=== PATIENT | female | born 1985 | race Caucasian/White ===

== ENCOUNTER → 2016-06-06 | Outpatient (CLI) | payer OTHER ==
--- NOTE | 2016-06-06 15:52 | REP ---
MAXILLOFACIAL CT WITHOUT CONTRAST: HISTORY: Recurrent sinusitis. Small bilateral Anjelica cells are present. The right frontal sinus is hypoplastic. The sinuses are clear. The ostiomeatal units are patent. The middle and inferior nasal turbinates are partially paradoxical. There is very minimal deviation of the nasal septum to the right. The cribriform plate, medial olivas of the orbits and optic canals are intact. There is aeration of the left anterior clinoid process. The carotid canals form a segment of the posterolateral olivas of the sphenoid sinus. IMPRESSION: There is no acute or chronic sinusitis. Signed by West Hurtado MD 06/06/2016 03:54 P
== END ==
LOC: M RAD 14:55
PROVIDERS: ATTEND Family Medicine
DX: J01.11 Acute recurrent frontal sinusitis (principal)

== ENCOUNTER → 2016-11-25 | Outpatient (REF) | payer MEDICAID, OTHER ==
[2016-11-25 12:56] LABS: FOLATE 17.9 NG/ML (>5.4); VITAMIN B12 LEVEL 1111 PG/ML (247-911)
[2016-11-25 13:06] LABS: ALBUMIN 3.7 GM/DL (3.2-5.2); ALBUMIN/GLOBULIN RATIO 1.09 (1.00-1.93); ALKALINE PHOSPHATASE 93 U/L (45-117); ALT/SGPT 28 U/L (12-78); ANION GAP 9 MEQ/L (8-16); AST/SGOT 18 U/L (15-37); BILIRUBIN,TOTAL 0.3 MG/DL (0.2-1.0); BLOOD UREA NITROGEN 11 MG/DL (7-18); CALCIUM LEVEL 9.3 MG/DL (8.5-10.1); CARBON DIOXIDE LEVEL 27 MEQ/L (21-32); CHLORIDE LEVEL 106 MEQ/L (98-107); CHOLESTEROL LEVEL 186 MG/DL (<200); CREATININE FOR GFR 0.91 MG/DL (0.55-1.02); GLOMERULAR FILTRATION RATE > 60.0 (>60); GLUCOSE, FASTING 76 MG/DL (70-105); MAGNESIUM LEVEL 2.5 MG/DL (1.8-2.4); POTASSIUM SERUM 4.6 MEQ/L (3.5-5.1); SODIUM LEVEL 142 MEQ/L (136-145); TOTAL PROTEIN 7.1 GM/DL (6.4-8.2); TRIGLYCERIDES LEVEL 133 MG/DL (<150)
[2016-11-25 13:29] LABS: BASO % 0.3 % (0.0-1.0); EOS # 0.2 K/mm3 (0.0-0.50); LARGE UNSTAINED CELL # 0.1 K/mm3 (0.0-0.4); LARGE UNSTAINED CELL % 1.2 % (0.0-4.0); LYMPH # 1.6 K/mm3 (1.5-4.5); LYMPH % 19.8 % (24.0-44.0); MEAN CORPUSCULAR HEMOGLOBIN 29.7 pg (27.0-33.0); MEAN CORPUSCULAR VOLUME 92.9 fl (80.0-96.0); MONO # 0.5 K/mm3 (0.0-0.8); MONO % 6.5 % (0.0-5.0); NEUTROPHILS # 5.3 K/mm3 (1.8-7.7); NEUTROPHILS % 70.2 % (36.0-66.0); PLATELET COUNT, AUTOMATED 238 k/mm3 (150-450); WHITE BLOOD COUNT 7.5 K/mm3 (4.0-10.0)
== END ==
LOC: M SFHCCLAY 08:05
PROVIDERS: ATTEND Family Medicine
DX: Z98.890 Other specified postprocedural states (principal)

== ENCOUNTER → 2017-01-03 | Outpatient (REF) | payer OTHER | LOC: M LAB REF 16:50 | PROVIDERS: ATTEND Physician Assistant Medical | DX: J02.9 Acute pharyngitis, unspecified (principal) ==

== ENCOUNTER → 2017-02-08 | Outpatient (CLI) | payer OTHER ==
--- NOTE | 2017-02-08 14:53 | REP ---
Left foot radiographs: Four views. History: Pain. Three weeks after a fall. Findings: Four views of the left foot show overall normal mineralization. No fracture is seen. No subluxation noted. Plantar and Achilles calcaneal spurring are noted. Impression: Heel spurs. No traumatic abnormality seen. Signed by Hammad Cabrera MD 02/08/2017 03:09 P
== END ==
LOC: M ADAMS 14:23
PROVIDERS: ATTEND Physician Assistant
DX: M79.672 Pain in left foot (principal); M77.32 Calcaneal spur, left foot

== ENCOUNTER 2017-04-28 22:22 | Emergency (ER) | payer OTHER ==
[2017-04-28] MEDS: ONDANSETRON 4 MG ORAL DISINTEGRATING TAB (S0181) PO (23:45)
[2017-04-28] MEDS: traMADol 50 MG TAB PO (23:50)
== END 2017-04-29 01:23 | disposition home or self-care (01) ==
LOC: M ED 04-29 01:23
DX: S30.0XXA Contusion of lower back and pelvis, initial encounter (principal); S20.221A Contusion of right back wall of thorax, initial encounter; W10.9XXA Fall (on) (from) unspecified stairs and steps, initial encounter; Y92.009 Unspecified place in unspecified non-institutional (private) residence as the place of occurrence of the external cause; Y93.89 Activity, other specified; Y99.8 Other external cause status; F17.210 Nicotine dependence, cigarettes, uncomplicated; F41.9 Anxiety disorder, unspecified; F33.9 Major depressive disorder, recurrent, unspecified; Z79.899 Other long term (current) drug therapy; Z88.5 Allergy status to narcotic agent; Z88.8 Allergy status to other drugs, medicaments and biological substances; Z91.048 Other nonmedicinal substance allergy status
CPT/HCPCS: 71101

== ENCOUNTER → 2017-05-04 | Outpatient (CLI) | payer OTHER | LOC: M ADAMS 11:45 | DX: M54.14 Radiculopathy, thoracic region (principal) | CPT/HCPCS: 72072 ==

== ENCOUNTER → 2018-05-13 | Outpatient (CLI) | payer MEDICAID ==
[~2018-05-13] MED LIST: ADDE12.5 PO; BUPR75TA5 PO; BUSP1TAB PO; ULTR50TA8 PO; VERA40TA PO
--- NOTE | 2018-05-13 09:33 | REP ---
RIGHT KNEE, FIVE VIEWS: HISTORY: Acute pain. There is no acute fracture or dislocation. The joint spaces are normal in appearance. IMPRESSION: There is no acute fracture or dislocation.
== END ==
LOC: M CLY 08:46
PROVIDERS: ATTEND Family Medicine
DX: M25.561 Pain in right knee (principal)

== ENCOUNTER → 2018-06-03 | Outpatient (CLI) | payer OTHER ==
--- NOTE | 2018-06-04 02:56 | REP ---
Clinical: Left-sided pain . Technique: Villeda scale and color Doppler evaluation using linear high frequency transducer. Findings: Ultrasound examination of the left lower extremity deep venous structures from the common femoral vein to the popliteal vein demonstrates normal compressibility flow and wave patterns in response to respiration and augmentation. There is no evidence for deep venous thrombosis. Impression: No evidence for deep venous thrombosis. Electronically Signed by Javier Ruiz MD 06/04/2018 02:47 A
== END ==
LOC: M RAD 08:17
PROVIDERS: ATTEND Nurse Practitioner Family
DX: M79.605 Pain in left leg (principal)

== ENCOUNTER → 2019-02-01 | Outpatient (REF) | payer OTHER ==
[2019-02-01 11:35] LABS: BASO % 0.3 % (0.0-1.0); EOS # 0.1 10^3/uL (0.0-0.5); EOS % 1.5 % (0.0-3.0); HEMATOCRIT 41.7 % (36.0-47.0); HEMOGLOBIN 12.8 g/dl (12.0-15.5); LYMPH # 2.5 10^3/uL (1.5-5.0); LYMPH % 28.5 % (24.0-44.0); MEAN CORPUSCULAR HGB CONC 30.7 g/dl (32.0-36.5); MEAN CORPUSCULAR VOLUME 91.2 fl (80.0-96.0); MONO # 0.6 10^3/uL (0.0-0.8); MONO % 7.4 % (0.0-5.0); NEUTROPHILS # 5.3 10^3/uL (1.5-8.5); PLATELET COUNT, AUTOMATED 309 10^3/uL (150-450); RED BLOOD COUNT 4.57 10^6/uL (4.00-5.40); WHITE BLOOD COUNT 8.6 10^3/uL (4.0-10.0)
[2019-02-01 11:50] LABS: ALBUMIN 3.6 GM/DL (3.2-5.2); ALT/SGPT 25 U/L (12-78); BILIRUBIN,TOTAL 0.3 MG/DL (0.2-1.0); BLOOD UREA NITROGEN 11 MG/DL (7-18); CALCIUM LEVEL 9.2 MG/DL (8.5-10.1); CARBON DIOXIDE LEVEL 28 MEQ/L (21-32); CHLORIDE LEVEL 107 MEQ/L (98-107); CHOLESTEROL LEVEL 183 MG/DL (<200); CREATININE FOR GFR 0.96 MG/DL (0.55-1.30); FOLATE > 24.0 NG/ML (>5.4); GLOMERULAR FILTRATION RATE > 60.0 (>60); GLUCOSE, FASTING 88 MG/DL (70-100); HDL CHOLESTEROL 75 MG/DL (>40); IRON (FE) 50 UG/DL (50-170); LDL CHOLESTEROL 79 MG/DL (<100); MAGNESIUM LEVEL 2.1 MG/DL (1.8-2.4); NON-HDL-C 108 MG/DL; POTASSIUM SERUM 4.4 MEQ/L (3.5-5.1); SODIUM LEVEL 143 MEQ/L (136-145); TOTAL PROTEIN 6.6 GM/DL (6.4-8.2); TRIGLYCERIDES LEVEL 143 MG/DL (<150); VITAMIN B12 LEVEL 1106 PG/ML (247-911)
== END ==
LOC: M SFHCCLAY 07:39
PROVIDERS: ATTEND Family Medicine
DX: Z98.890 Other specified postprocedural states (principal); E16.2 Hypoglycemia, unspecified; Z79.899 Other long term (current) drug therapy

== ENCOUNTER 2019-12-15 07:57 | Emergency (ER) | payer OTHER ==
[~2019-12-15] VITALS: Ht 167.6 cm; Wt 110.4 kg
[2019-12-15] MEDS ORDERED: TRAZ-252 (08:10)
[2019-12-15] MEDS ORDERED: BUSP15TA47 (08:10)
[2019-12-15] MEDS ORDERED: TIZA2TA (08:10)
[2019-12-15] MEDS ORDERED: TRAM50TA2 (08:10)
[2019-12-15] MEDS ORDERED: DULO1CAP6 (08:10)
[2019-12-15] MEDS ORDERED: traMADol 50 MG TAB PO ONE (08:30)
[2019-12-15 09:23] LABS: BASO % 0.3 % (0.0-1.0); EOS # 0.3 10^3/uL (0.0-0.5); EOS % 2.7 % (0.0-3.0); HEMATOCRIT 41.3 % (36.0-47.0); HEMOGLOBIN 13.1 g/dl (12.0-15.5); LYMPH # 2.6 10^3/uL (1.5-5.0); LYMPH % 26.4 % (24.0-44.0); MEAN CORPUSCULAR HEMOGLOBIN 28.1 pg (27.0-33.0); MEAN CORPUSCULAR HGB CONC 31.7 g/dl (32.0-36.5); MEAN CORPUSCULAR VOLUME 88.4 fl (80.0-96.0); MONO # 0.9 10^3/uL (0.0-0.8); MONO % 8.8 % (0.0-5.0); NEUTROPHILS % 61.5 % (36.0-66.0); RED BLOOD COUNT 4.67 10^6/uL (4.00-5.40); WHITE BLOOD COUNT 9.8 10^3/uL (4.0-10.0)
[2019-12-15 09:39] LABS: C REACTIVE PROTEIN QUANTITATIV 0.91 MG/DL (0.00-0.30); CK-MB VALUE MASS < 1.0 NG/ML (<3.6); CPK CREATINE PHOSPHOKINASE 86 U/L (26-192); ETHYL ALCOHOL (ETHANOL) < 0.003 % (0.000-0.010); MB/CK RELATIVE INDEX 1.16 (< OR =4); TROPONIN I < 0.02 NG/ML (< 0.10)
[2019-12-15 09:54] LABS: PLATELET COUNT, AUTOMATED 276 10^3/uL (150-450)
[2019-12-15 11:29] LABS: ERYTHROCYTE SEDIMENTATION RATE 17 mm/hr (0-20)
[2019-12-15] MEDS ORDERED: PROHANCE 279.3MG/ML 5ML VIAL As Ordered ONE (14:05)
[2019-12-15] MEDS ORDERED: PROHANCE 279.3MG/ML 15ML VIAL As Ordered ONE (14:06)
--- NOTE | 2019-12-15 15:13 | REPVR ---
PROCEDURE INFORMATION: Exam: MR Right Lower Extremity Joint Without and With Contrast; Hip Exam date and time: 12/15/2019 2:32 PM Age: 34 years old Clinical indication: Abnormal findings; Abnormal imaging study; Xray; Additional info: Concern for lytic lesion on imaging, ortho to get mri today TECHNIQUE: Imaging protocol: MR of the Right lower extremity joint without and with contrast. Exam focused on the hip. Contrast material: PROHANCE; Contrast volume: 20 ml; Contrast route: INTRAVENOUS (IV); COMPARISON: CR Hip, Ap,Lat RIGHT 12/15/2019 10:05 AM FINDINGS: Bones and cartilage: There is no evidence of a lesion noted involving the intertrochanteric region of right hip. There is however, mild bilateral trochanteric bursitis. There is marrow edema noted involving the superior acetabular rim anteriorly. This enhances postcontrast extends 2 the cortex with a possible developing subchondral bone cyst. This may represent early arthritic changes are early area of osteonecrosis. There is no evidence of cartilage thinning. Joint spaces: There is no evidence of a labral tear however, there is a trace effusion. Labrum: Unremarkable. No tear. TENDONS: Tendons of iliopsoas group: Unremarkable. No evidence of tear. Tendons of medial compartment of thigh: Unremarkable. No evidence of tear. Tendons of lateral rotators of hip: Unremarkable. No evidence of tear. Tendons of gluteal group: Unremarkable. No evidence of tear. Muscles: There is no evidence of abnormal muscle edema. Soft tissues: Unremarkable. IMPRESSION: There is no bony lesion however, there is trochanteric bursitis bilaterally. In addition there is marrow edema noted involving the superior anterior acetabulum with contrast enhancement of this area. The presence of a early osteochondral lesion or early osteonecrosis is suspected. Electronically signed by: Angel Rubio On 12/15/2019 15:13:59 PM
[2019-12-15] MEDS ORDERED: KETOROLAC 30 MG/ML 1ML VIAL IV ONE (15:30)
[2019-12-15 16:06] VITALS: BP 115/60
== END 2019-12-15 17:01 | disposition home or self-care (01) ==
LOC: M ED 07:57
DX: D75.89 Other specified diseases of blood and blood-forming organs (principal); M70.61 Trochanteric bursitis, right hip; M70.62 Trochanteric bursitis, left hip; M25.551 Pain in right hip; F41.9 Anxiety disorder, unspecified; F32.9 Major depressive disorder, single episode, unspecified; Z98.84 Bariatric surgery status; J30.1 Allergic rhinitis due to pollen; F17.210 Nicotine dependence, cigarettes, uncomplicated; Z88.5 Allergy status to narcotic agent; Z88.6 Allergy status to analgesic agent; Z88.8 Allergy status to other drugs, medicaments and biological substances; Z79.899 Other long term (current) drug therapy
CPT/HCPCS: 36415; 73502; 73723; 80047; 82550; 82553; 85025; 85652; 86140; 96374; 99284; A9576; G0480; J1885

== ENCOUNTER → 2020-04-28 | Outpatient (CLI) | payer SELFPAY ==
[~2020-04-28] MED LIST changes: +BUSP15TA47; +DULO1CAP6; +TIZA2TA; +TRAM50TA2; +TRAZ-252
== END ==
LOC: M LABSMTC 09:29
PROVIDERS: ATTEND Pediatrics
DX: Z20.828 Contact with and (suspected) exposure to other viral communicable diseases (principal)

== ENCOUNTER → 2020-08-27 | Outpatient (REF) | payer OTHER ==
[2020-08-27 12:20] LABS: BASO % 0.3 % (0.0-1.0); EOS # 0.2 10^3/uL (0.0-0.5); EOS % 1.9 % (0.0-3.0); HEMATOCRIT 39.1 % (36.0-47.0); HEMOGLOBIN 12.3 g/dl (12.0-15.5); LYMPH # 2.2 10^3/uL (1.5-5.0); LYMPH % 22.7 % (24.0-44.0); MEAN CORPUSCULAR HEMOGLOBIN 28.2 pg (27.0-33.0); MEAN CORPUSCULAR HGB CONC 31.5 g/dl (32.0-36.5); MEAN CORPUSCULAR VOLUME 89.7 fl (80.0-96.0); MONO # 0.8 10^3/uL (0.0-0.8); MONO % 8.2 % (2.0-8.0); NEUTROPHILS # 6.3 10^3/uL (1.5-8.5); NEUTROPHILS % 66.6 % (36.0-66.0); PLATELET COUNT, AUTOMATED 368 10^3/uL (150-450); RED BLOOD COUNT 4.36 10^6/uL (4.00-5.40); WHITE BLOOD COUNT 9.5 10^3/uL (4.0-10.0)
[2020-08-27 13:18] LABS: ALBUMIN 3.6 GM/DL (3.2-5.2); ALT/SGPT 30 U/L (12-78); BILIRUBIN,TOTAL 0.4 MG/DL (0.2-1.0); BLOOD UREA NITROGEN 12 MG/DL (7-18); CARBON DIOXIDE LEVEL 27 MEQ/L (21-32); CHLORIDE LEVEL 105 MEQ/L (98-107); CREATININE FOR GFR 0.82 MG/DL (0.55-1.30); FOLATE 9.8 NG/ML (>5.4); GLOMERULAR FILTRATION RATE > 60.0 (>60); GLUCOSE, FASTING 74 MG/DL (70-100); IRON (FE) 113 UG/DL (50-170); MAGNESIUM LEVEL 2.4 MG/DL (1.8-2.4); POTASSIUM SERUM 5.3 MEQ/L (3.5-5.1); SODIUM LEVEL 138 MEQ/L (136-145); TOTAL PROTEIN 6.9 GM/DL (6.4-8.2); VITAMIN B12 LEVEL 579 PG/ML (247-911)
[2020-08-27 18:27] LABS: HEMOGLOBIN A1c 4.8 %
== END ==
LOC: M SFHCCLAY 09:10
PROVIDERS: ATTEND Family Medicine
DX: R10.9 Unspecified abdominal pain (principal); Z98.84 Bariatric surgery status

== ENCOUNTER → 2020-09-03 | Outpatient (CLI) | payer OTHER | LOC: M LAB 10:31 | PROVIDERS: ATTEND Physician Assistant | DX: R19.7 Diarrhea, unspecified (principal) ==

== ENCOUNTER → 2020-09-22 | Outpatient (CLI) | payer SELFPAY | LOC: M LABSMTC 10:16 | PROVIDERS: ATTEND Pediatrics | DX: Z11.52 Encounter for screening for COVID-19 (principal) ==

== ENCOUNTER → 2021-08-16 | Outpatient (REF) | payer OTHER ==
[2021-08-16 11:39] LABS: BASO % 0.3 % (0.0-1.0); EOS # 0.3 10^3/uL (0.0-0.5); EOS % 2.5 % (0.0-3.0); HEMATOCRIT 41.9 % (36.0-47.0); HEMOGLOBIN 13.4 g/dl (12.0-15.5); LYMPH # 2.3 10^3/uL (1.5-5.0); LYMPH % 22.9 % (24.0-44.0); MEAN CORPUSCULAR HEMOGLOBIN 28.7 pg (27.0-33.0); MEAN CORPUSCULAR VOLUME 89.7 fl (80.0-96.0); MONO # 0.9 10^3/uL (0.0-0.8); MONO % 9.3 % (2.0-8.0); NEUTROPHILS # 6.4 10^3/uL (1.5-8.5); NEUTROPHILS % 64.5 % (36.0-66.0); PLATELET COUNT, AUTOMATED 311 10^3/uL (150-450); RED BLOOD COUNT 4.67 10^6/uL (4.00-5.40)
[2021-08-16 11:52] LABS: ALBUMIN 3.7 GM/DL (3.2-5.2); ALT/SGPT 34 U/L (12-78); BILIRUBIN,TOTAL 0.5 MG/DL (0.2-1.0); BLOOD UREA NITROGEN 14 MG/DL (7-18); CALCIUM LEVEL 9.8 MG/DL (8.5-10.1); CARBON DIOXIDE LEVEL 29 MEQ/L (21-32); CHLORIDE LEVEL 107 MEQ/L (98-107); CHOLESTEROL LEVEL 217 MG/DL (<200); CHOLESTEROL RISK RATIO 2.583 (<5); CREATININE FOR GFR 0.83 MG/DL (0.55-1.30); FOLATE 9.1 NG/ML (>5.4); GLOMERULAR FILTRATION RATE > 60.0 (>60); GLUCOSE, FASTING 76 MG/DL (70-100); HDL CHOLESTEROL 84 MG/DL (>40); IRON (FE) 144 UG/DL (50-170); LDL CHOLESTEROL 105 MG/DL (<100); MAGNESIUM LEVEL 2.2 MG/DL (1.8-2.4); NON-HDL-C 133 MG/DL; POTASSIUM SERUM 4.3 MEQ/L (3.5-5.1); SODIUM LEVEL 138 MEQ/L (136-145); TOTAL PROTEIN 7.1 GM/DL (6.4-8.2); TRIGLYCERIDES LEVEL 140 MG/DL (<150)
[2021-08-20 16:59] LABS: VITAMIN B12 LEVEL 438 PG/ML (247-911)
== END ==
LOC: M SFHCCLAY 09:08
PROVIDERS: ATTEND Family Medicine
DX: R00.2 Palpitations (principal); Z98.84 Bariatric surgery status

== ENCOUNTER → 2022-02-28 | Outpatient (CLI) | payer OTHER | LOC: M RAD 15:54 | PROVIDERS: ATTEND Family Medicine | DX: M54.16 Radiculopathy, lumbar region (principal) ==

== ENCOUNTER → 2022-12-08 | Outpatient (REF) | payer OTHER ==
[2022-12-08 12:47] LABS: HEMOGLOBIN A1c 5.6 % (4.0-6.0)
[2022-12-08 13:00] LABS: HEMATOCRIT 36.8 % (36.0-47.0); HEMOGLOBIN 11.4 g/dl (12.0-15.5); MEAN CORPUSCULAR HEMOGLOBIN 24.6 pg (27.0-33.0); MEAN CORPUSCULAR VOLUME 79.5 fl (80.0-96.0); PLATELET COUNT, AUTOMATED 409 10^3/uL (150-450); RED BLOOD COUNT 4.63 10^6/uL (4.00-5.40); WHITE BLOOD COUNT 9.6 10^3/uL (4.0-10.0)
[2022-12-08 13:06] LABS: ALBUMIN 3.8 G/DL (3.2-5.2); ALKALINE PHOSPHATASE 104 U/L (46-116); ALT/SGPT 25 U/L (7.0-40); AST/SGOT 17 U/L (<34); BILIRUBIN,TOTAL 0.3 MG/DL (0.3-1.2); BLOOD UREA NITROGEN 9 MG/DL (9-23); CALCIUM LEVEL 9.8 MG/DL (8.5-10.1); CARBON DIOXIDE LEVEL 26 MMOL/L (20-31); CHLORIDE LEVEL 105 MMOL/L (98-107); CHOLESTEROL LEVEL 198 MG/DL (<200); CHOLESTEROL RISK RATIO 2.61 (<5); CREATININE FOR GFR 0.75 MG/DL (0.55-1.30); GLOMERULAR FILTRATION RATE > 60.0 (>60); GLUCOSE, FASTING 79 MG/DL (60-100); HDL CHOLESTEROL 75.8 MG/DL (>40); IRON (FE) 45 UG/DL (50-170); MAGNESIUM LEVEL 2.2 MG/DL (1.8-2.4); NON-HDL-C 122.2 MG/DL; POTASSIUM SERUM 4.8 MMOL/L (3.5-5.1); SODIUM LEVEL 139 MMOL/L (136-145); TOTAL PROTEIN 6.9 G/DL (5.7-8.2); TRIGLYCERIDES LEVEL 201 MG/DL (<150)
[2022-12-08 13:07] LABS: FOLATE 20.27 NG/ML (>5.4); VITAMIN B12 LEVEL 484 PG/ML (211-911)
== END ==
LOC: M SFHCCLAY 07:48
PROVIDERS: ATTEND Family Medicine
DX: Z98.84 Bariatric surgery status (principal)

== ENCOUNTER → 2022-12-25 | Outpatient (CLI) | payer OTHER | LOC: M RAD 16:15 | PROVIDERS: ATTEND Family Medicine | DX: S73.191A Other sprain of right hip, initial encounter (principal); M25.551 Pain in right hip; Y93.9 Activity, unspecified; Y92.9 Unspecified place or not applicable ==

== ENCOUNTER 2023-04-08 10:50 | Emergency (ER) | payer OTHER ==
[~2023-04-08] VITALS: Ht 170.2 cm; Wt 93.6 kg
[2023-04-08] MEDS ORDERED: AMIT25TA19 (11:21)
[2023-04-08] MEDS ORDERED: AMPH1CAP4 (11:21)
[2023-04-08] MEDS ORDERED: GABA-1171 (11:21)
[2023-04-08] MEDS ORDERED: KETOROLAC TROMETHAMINE 10 MG TAB PO ONE (12:35)
[2023-04-08 13:46] VITALS: BP 133/77; TEMP 98.5; O2SAT 96
== END 2023-04-08 13:56 | disposition home or self-care (01) ==
LOC: M ED 10:50
DX: S93.691A Other sprain of right foot, initial encounter (principal); S80.212A Abrasion, left knee, initial encounter; S40.022A Contusion of left upper arm, initial encounter; W00.9XXA Unspecified fall due to ice and snow, initial encounter; F41.9 Anxiety disorder, unspecified; F32.A Depression, unspecified; F17.200 Nicotine dependence, unspecified, uncomplicated; F10.10 Alcohol abuse, uncomplicated; Z88.5 Allergy status to narcotic agent; Z88.6 Allergy status to analgesic agent; Z91.048 Other nonmedicinal substance allergy status; Z98.84 Bariatric surgery status; Z79.891 Long term (current) use of opiate analgesic; Z79.899 Other long term (current) drug therapy; Y92.9 Unspecified place or not applicable; Y99.9 Unspecified external cause status; Y93.9 Activity, unspecified

== ENCOUNTER → 2023-06-29 | Outpatient (REF) | payer OTHER ==
[~2023-06-29] MED LIST changes: +AMIT25TA19; +AMPH1CAP4; +GABA-1171
[2023-06-29 11:49] LABS: HEMATOCRIT 42.6 % (36.0-47.0); MEAN CORPUSCULAR HEMOGLOBIN 31.3 pg (27.0-33.0); MEAN CORPUSCULAR HGB CONC 32.9 g/dl (32.0-36.5); MEAN CORPUSCULAR VOLUME 95.3 fl (80.0-96.0); PLATELET COUNT, AUTOMATED 333 10^3/uL (150-450); RED BLOOD COUNT 4.47 10^6/uL (4.00-5.40)
[2023-06-29 12:14] LABS: IRON (FE) 52 UG/DL (50-170)
[2023-06-29 12:15] LABS: ALBUMIN 3.5 G/DL (3.2-5.2); ALKALINE PHOSPHATASE 109 U/L (46-116); ALT/SGPT 33 U/L (7.0-40); AST/SGOT 23 U/L (<34); BILIRUBIN,TOTAL 0.3 MG/DL (0.3-1.2); BLOOD UREA NITROGEN 12 MG/DL (9-23); CALCIUM LEVEL 8.9 MG/DL (8.5-10.1); CARBON DIOXIDE LEVEL 30 MMOL/L (20-31); CHLORIDE LEVEL 106 MMOL/L (98-107); CREATININE FOR GFR 0.86 MG/DL (0.55-1.30); GLOMERULAR FILTRATION RATE > 60.0 (>58); GLUCOSE, FASTING 52 MG/DL (60-100); SODIUM LEVEL 139 MMOL/L (136-145); TOTAL PROTEIN 6.4 G/DL (5.7-8.2)
[2023-06-29 12:36] LABS: HEMOGLOBIN A1c 4.7 % (4.0-6.0)
== END ==
LOC: M SFHCCLAY 07:37
PROVIDERS: ATTEND Family Medicine
DX: D64.9 Anemia, unspecified (principal); R73.01 Impaired fasting glucose; Z98.84 Bariatric surgery status

== ENCOUNTER → 2024-01-01 | Outpatient (REF) | payer OTHER ==
[2024-01-01 11:12] LABS: INR 0.97; PARTIAL THROMBOPLASTIN TIME 26.2 SECONDS (24.8-34.2); PROTHROMBIN TIME 12.6 SECONDS (12.5-14.5)
[2024-01-01 11:43] LABS: BASO % 0.2 % (0.0-1.0); EOS # 0.1 10^3/uL (0.0-0.5); EOS % 1.1 % (0.0-3.0); HEMATOCRIT 42.8 % (36.0-47.0); HEMOGLOBIN 14.5 g/dl (12.0-15.5); LYMPH # 2.1 10^3/uL (1.5-5.0); LYMPH % 25.2 % (24.0-44.0); MEAN CORPUSCULAR HEMOGLOBIN 31.9 pg (27.0-33.0); MEAN CORPUSCULAR HGB CONC 33.9 g/dl (32.0-36.5); MEAN CORPUSCULAR VOLUME 94.3 fl (80.0-96.0); MONO # 0.7 10^3/uL (0.0-0.8); MONO % 7.9 % (2.0-8.0); NEUTROPHILS # 5.4 10^3/uL (1.5-8.5); NEUTROPHILS % 65.2 % (36.0-66.0); PLATELET COUNT, AUTOMATED 269 10^3/uL (150-450); RED BLOOD COUNT 4.54 10^6/uL (4.00-5.40); WHITE BLOOD COUNT 8.3 10^3/uL (4.0-10.0)
[2024-01-01 11:45] LABS: ALBUMIN 3.8 G/DL (3.2-5.2); ALKALINE PHOSPHATASE 101 U/L (46-116); ALT/SGPT 46 U/L (7.0-40); AST/SGOT 38 U/L (<34); BILIRUBIN,TOTAL 0.4 MG/DL (0.3-1.2); BLOOD UREA NITROGEN 13 MG/DL (9-23); CALCIUM LEVEL 9.3 MG/DL (8.5-10.1); CARBON DIOXIDE LEVEL 27 MMOL/L (20-31); CHLORIDE LEVEL 107 MMOL/L (98-107); CHOLESTEROL LEVEL 214 MG/DL (<200); CHOLESTEROL RISK RATIO 2.63 (<5); CREATININE FOR GFR 0.79 MG/DL (0.55-1.30); GLOMERULAR FILTRATION RATE > 60.0 (>58); GLUCOSE, FASTING 84 MG/DL (60-100); HDL CHOLESTEROL 81.1 MG/DL (>40); IRON (FE) 145 UG/DL (50-170); LDL CHOLESTEROL 110.1 MG/DL (<100); NON-HDL-C 132.9 MG/DL; POTASSIUM SERUM 4.5 MMOL/L (3.5-5.1); SODIUM LEVEL 137 MMOL/L (136-145); TOTAL PROTEIN 6.9 G/DL (5.7-8.2); TRIGLYCERIDES LEVEL 114 MG/DL (<150)
[2024-01-01 11:53] LABS: FREE T4 1.16 NG/DL (0.89-1.76); TOTAL T3 97.7 NG/DL (60.0-181.0)
[2024-01-01 11:54] LABS: THYROID STIMULATING HORMONE 1.465 uIU/ML (0.55-4.78)
[2024-01-01 11:55] LABS: FOLATE 14.86 NG/ML (>5.4)
[2024-01-01 11:56] LABS: VITAMIN B12 LEVEL 739 PG/ML (211-911)
[2024-01-01 12:56] LABS: HEMOGLOBIN A1c 4.8 % (4.0-6.0)
== END ==
LOC: M SFHCCLAY 08:20
PROVIDERS: ATTEND Family Medicine
DX: R23.3 Spontaneous ecchymoses (principal); Z98.84 Bariatric surgery status; R23.2 Flushing

== ENCOUNTER → 2024-04-25 | Outpatient (REF) | LOC: M CAHLAB 21:49 → M LAB REF 21:49 | DX: Z00.00 Encounter for general adult medical examination without abnormal findings (principal) ==

== ENCOUNTER → 2024-05-16 | Outpatient (CLI) | payer OTHER | LOC: M PLAIMG 12:09 | PROVIDERS: ATTEND Physician Assistant Surgical | DX: M46.1 Sacroiliitis, not elsewhere classified (principal); M25.551 Pain in right hip ==

== ENCOUNTER → 2024-07-01 | Outpatient (REF) | payer OTHER ==
[2024-07-01 12:32] LABS: COMPLEMENT C3 160.3 MG/DL (90.0-170.0); COMPLEMENT C4 55.9 MG/DL (12-36)
[2024-07-04 12:47] LABS: RNP ANTIBODY <1.0 NEG AI (<1.0 NEG); SM ANTIBODY <1.0 NEG AI (<1.0 NEG)
[2024-07-05 13:47] LABS: ANA PATTERN Nuclear, Speckled (NEGATIVE); ANA PATTERN 2 Nuclear, Homogeneous; ANA SCREEN, IFA POSITIVE (NEGATIVE); ANA TITER 1:40 titer (<1:40); ANA TITER 2 1:40 titer (NEGATIVE)
[2024-07-06 00:32] LABS: Anticardiolipin Ab, IGG < 2.0 GPL-U/mL (<20.0); Anticardiolipin Ab, IGM < 2.0 MPL-U/mL (<20.0); Anticardiolipin Ab, IgA < 2.0 APL-U/mL (<20.0); Beta-2 GLYCOPROTEIN I, IGG < 2.0 U/mL (<20.0); Beta-2 Glycoprotein I, IGA < 2.0 U/mL (<20.0); Beta-2 Glycoprotein I, IGM < 2.0 U/mL (<20.0)
[2024-07-06 08:16] LABS: APTT APSCOMP 30 sec (<=40); DRVTT Screen Seconds 36 sec (<=45)
[2024-07-06 12:43] LABS: ANTI DS-DNA AB NEGATIVE (NEGATIVE)
== END ==
LOC: M SFHCCLAY 08:18
PROVIDERS: ATTEND Family Medicine
DX: M25.50 Pain in unspecified joint (principal); R76.8 Other specified abnormal immunological findings in serum

== ENCOUNTER → 2024-11-24 | Outpatient (CLI) | payer OTHER | LOC: M PLAIMG 14:30 | PROVIDERS: ATTEND Family Medicine | DX: M25.561 Pain in right knee (principal); R93.7 Abnormal findings on diagnostic imaging of other parts of musculoskeletal system ==

== ENCOUNTER → 2024-11-30 | Outpatient (CLI) | payer OTHER | LOC: M SOG 14:27 | PROVIDERS: ATTEND Neuromusculoskeletal Medicine, Sports Medicine | DX: M25.561 Pain in right knee (principal) ==

== ENCOUNTER → 2025-01-05 | Outpatient (CLI) | payer OTHER | LOC: M SOG 07:27 | PROVIDERS: ATTEND Neuromusculoskeletal Medicine, Sports Medicine | DX: M25.561 Pain in right knee (principal) ==

== ENCOUNTER → 2025-01-24 | Outpatient (REF) | payer OTHER ==
[~2025-01-24] MED LIST changes: +ACET-897 PO; -AMIT25TA19; +AMIT25TA19 PO; -AMPH1CAP4; +AMPH1CAP4 PO; -BUSP15TA47; +BUSP15TA47 PO; +CELE0.09 PO; +CETI10CA2 PO; +DULO1CAP5 PO; -DULO1CAP6; +DULO1CAP6 PO; +GABA-1172 PO; +MELA5CAP2 PO; +TIZA10TA PO; -TRAM50TA2; +TRAM50TA2 PO
[2025-01-24 18:45] LABS: BASO # 0.0 10^3/uL (0.0-0.2); BASO % 0.4 % (0.0-1.0); EOS # 0.1 10^3/uL (0.0-0.5); EOS % 1.3 % (0.0-3.0); LYMPH # 3.4 10^3/uL (1.5-5.0); LYMPH % 30.6 % (24.0-44.0); MONO # 0.8 10^3/uL (0.0-0.8); MONO % 6.9 % (2.0-8.0); NEUTROPHILS # 6.7 10^3/uL (1.5-8.5); NEUTROPHILS % 60.5 % (36.0-66.0); PLATELET COUNT, AUTOMATED 334 10^3/uL (150-450)
[2025-01-24 19:11] LABS: ALT/SGPT 35 U/L (7.0-40); AST/SGOT 29 U/L (<34); CALCIUM LEVEL 9.8 MG/DL (8.5-10.1); CARBON DIOXIDE LEVEL 27 MMOL/L (20-31); CHLORIDE LEVEL 103 MMOL/L (98-107); CHOLESTEROL LEVEL 241 MG/DL (<200); CHOLESTEROL RISK RATIO 3.17 (<5); CREATININE FOR GFR 0.71 MG/DL (0.55-1.30); GLOMERULAR FILTRATION RATE > 90.0 (>58); IRON (FE) 18 UG/DL (50-170); LDL CHOLESTEROL 138.1 MG/DL (<100); MAGNESIUM LEVEL 2.2 MG/DL (1.8-2.4); NON-HDL-C 165.1 MG/DL; POTASSIUM SERUM 4.2 MMOL/L (3.5-5.1); SODIUM LEVEL 136 MMOL/L (136-145); TRIGLYCERIDES LEVEL 135 MG/DL (<150)
[2025-01-24 19:13] LABS: ESTIMATED AVERAGE GLUCOSE 100.0 MG/DL (60-110)
== END ==
LOC: M SFHCCLAY 14:40
PROVIDERS: ATTEND Family Medicine
DX: Z98.84 Bariatric surgery status (principal)

== ENCOUNTER 2025-01-31 08:17 | Day surgery (SDC) | payer OTHER ==
[~2025-01-31] VITALS: Ht 167.6 cm; Wt 94.7 kg
[2025-01-31] MEDS ORDERED: LR 1,000 ML IV SCH (08:30)
[2025-01-31] MEDS ORDERED: LIDOCAINE 2% 100 MG/5 ML SDV (FOR ANES.) As Ordered ONE (08:57)
[2025-01-31] MEDS ORDERED: dexAMETHasone 4 MG/ML 1 ML VIAL As Ordered ONE (08:58)
[2025-01-31] MEDS ORDERED: MIDAZOLAM INJ 2 MG/2 ML VIAL As Ordered ONE (09:26)
[2025-01-31] MEDS ORDERED: ACETAMINOPHEN 1000MG/100ML IV BAG As Ordered ONE (10:04)
[2025-01-31] MEDS ORDERED: ONDANSETRON 4MG/2ML VIAL As Ordered ONE (10:06)
[2025-01-31] MEDS: ceFAZolin SOD 2 GM IV ONCE IV ONE (10:38)
[2025-01-31] MEDS ORDERED: HYDROmorphone HCL 2 MG/ML 1 ML VIAL As Ordered ONE (10:41)
[2025-01-31] MEDS ORDERED: KETOROLAC 30 MG/ML 1 ML VIAL As Ordered ONE (11:07)
[2025-01-31] MEDS: LIDOCAINE W/EPINEPHrine 1% 20 ML VIAL As Ordered ONE (11:20)
[2025-01-31] MEDS: MORPHINE 10 MG/ML 1 ML VIAL As Ordered ONE (11:24)
[2025-01-31] MEDS ORDERED: ONDANSETRON 4MG/2ML VIAL IV PRN (11:30)
[2025-01-31] MEDS: HYDROMORPHONE HCL 0.5 MG/0.5 ML SYRINGE IV PRN (12:19)
[2025-01-31 13:51] VITALS: BP 140/61; TEMP 97.1; O2SAT 97
== END 2025-01-31 14:05 | disposition home or self-care (01) ==
LOC: M SDC 08:17
PROVIDERS: ATTEND Neuromusculoskeletal Medicine, Sports Medicine
DX: M17.11 Unilateral primary osteoarthritis, right knee (principal); S83.281A Other tear of lateral meniscus, current injury, right knee, initial encounter; S83.241A Other tear of medial meniscus, current injury, right knee, initial encounter; K58.8 Other irritable bowel syndrome; J30.2 Other seasonal allergic rhinitis; F41.9 Anxiety disorder, unspecified; F32.A Depression, unspecified; Z79.899 Other long term (current) drug therapy; Z88.5 Allergy status to narcotic agent; F17.210 Nicotine dependence, cigarettes, uncomplicated
CPT/HCPCS: 29880; J0131; J0665; J0688; J1100; J1171; J1885; J2250; J2405; J3010

== ENCOUNTER 2025-02-23 08:47 | Outpatient (RCR) | payer OTHER ==
[~2025-02-23 08:47] MED LIST changes: +BUPR-363 PO; -BUPR75TA5 PO
== END 2025-02-24 ==
LOC: M PT 08:47
PROVIDERS: ATTEND Neuromusculoskeletal Medicine, Sports Medicine
DX: S83.281A Other tear of lateral meniscus, current injury, right knee, initial encounter (principal); X58.XXXA Exposure to other specified factors, initial encounter; Y92.9 Unspecified place or not applicable

== ENCOUNTER 2025-03-16 08:45 | Outpatient (RCR) | payer OTHER | END 2025-03-26 | LOC: M PT 08:45 | PROVIDERS: ATTEND Neuromusculoskeletal Medicine, Sports Medicine | DX: S83.281A Other tear of lateral meniscus, current injury, right knee, initial encounter (principal); M17.11 Unilateral primary osteoarthritis, right knee; X58.XXXA Exposure to other specified factors, initial encounter; Y92.9 Unspecified place or not applicable; Y93.9 Activity, unspecified; Y99.9 Unspecified external cause status ==